=== PATIENT | male | born 1935 | race Caucasian/White ===

== ENCOUNTER → 2019-07-21 15:49 | Outpatient (BNVA) | payer MEDICARE, BC, SELFPAY | PROVIDERS: Visit Provider Nurse Practitioner | DX: Z12.5 Encounter for screening for malignant neoplasm of prostate (principal); I25.10 Atherosclerotic heart disease of native coronary artery without angina pectoris; R41.3 Other amnesia; I10 Essential (primary) hypertension | CPT/HCPCS: 80053; 80061; 81000; 82607; 84443; 85025; G0103 ==

== ENCOUNTER → 2019-11-04 10:36 | Outpatient (BNVA) | payer MEDICARE, BC, SELFPAY | PROVIDERS: Visit Provider Nurse Practitioner | DX: E53.8 Deficiency of other specified B group vitamins (principal); R41.3 Other amnesia | CPT/HCPCS: 82607 ==

== ENCOUNTER 2019-11-16 10:21 | Outpatient (CLI) | payer MEDICARE, BC, SELFPAY ==
[2019-11-16 11:09] LABS: Basophils % 0.8 %; Eosinophils # 0.1 10^3/uL (0.0-0.8); Eosinophils % 2.5 %; Hematocrit 44.1 % (42.0-52.0); Hemoglobin 14.2 g/dL (11.7-16.6); Lymphocytes # 0.7 10^3/uL (0.8-4.8); Mean Corpuscular HGB Conc 32.2 g/dL (30.0-36.0); Mean Corpuscular Hemoglobin 32.1 pg (28.0-34.0); Mean Corpuscular Volume 99.5 fL (80-94); Mean Platelet Volume 10.8 fL (7.4-10.4); Monocytes # 0.3 10^3/uL (0.2-0.9); Monocytes % 6.8 %; Neutrophils # 3.67 10^3/uL (1.8-7.7); Neutrophils % 75.5 %; Nucleated Red Blood Cells % 0 %; Platelet Count 171 10^3/cmm (130-400); Red Blood Count 4.43 10^6/uL (4.1-5.3); Red Cell Distribution Width 11.9 % (12.1-15.1); White Blood Count 4.9 10^3/uL (4.0-10.0)
[2019-11-16 11:22] LABS: Partial Thromboplastin Time 22.9 SECONDS (23.9-36.7)
[2019-11-16 11:28] LABS: Anion Gap 13.8 (5-19); Blood Urea Nitrogen 23 mg/dL (8-23); Calcium 9.6 mg/dL (8.5-10.5); Carbon Dioxide 28 mmol/L (22-29); Chloride 104 mmol/L (98-107); Glucose 111 mg/dL (65-115); Osmolality Calculated 289 mOsm/kg (285-295); Potassium 4.8 mmol/L (3.5-5.1); Sodium 141 mmol/L (136-145)
== END 2019-11-16 10:22 | disposition home or self-care (01) ==
LOC: LAB 10:30
PROVIDERS: Family Provider Internal Medicine Cardiovascular Disease; Visit Provider Internal Medicine Cardiovascular Disease
DX: R07.9 Chest pain, unspecified (principal); R93.1 Abnormal findings on diagnostic imaging of heart and coronary circulation; I10 Essential (primary) hypertension
CPT/HCPCS: 36415; 80048; 85025; 85610; 85730

== ENCOUNTER → 2020-04-24 12:00 | Outpatient (BNVA) | payer MEDICARE, BC, SELFPAY | PROVIDERS: Family Provider Internal Medicine Cardiovascular Disease; Visit Provider Nurse Practitioner Family | DX: R10.9 Unspecified abdominal pain (principal) | CPT/HCPCS: 80053; 82607; 83735; 85025 ==

== ENCOUNTER 2020-04-25 07:40 | Emergency (ER) | payer MEDICARE, BC, SELFPAY ==
[2020-04-25] VITALS (8 sets, daily range): BP systolic 101–128; BP diastolic 74–85; PULSE 50–91; RESP 16–18; TEMP 36.6; O2SAT 95–100; BMI 28.0
--- NOTE | 2020-04-25 07:51 | ECG_ITS ---
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1935 Requested By: Ochoa Milligan Order Number: [id number] Reading MD: KYLE CARDONA Measurements Intervals [place] Rate: 82 P: HI: QRS: -31 QRSD: 95 T: -6 QT: 366 QTc: 429 Interpretive Statements ATRIAL FIBRILLATION INFERIOR MYOCARDIAL INFARCTION , OF INDETERMINATE AGE [40+ ms Q WAVE AND/OR ST/T ABNORMALITY IN II/aVF] MODERATE T-WAVE ABNORMALITY, CONSIDER ANTEROLATERAL ISCHEMIA [-0.1+ mV T WAVE IN V3-V6] No previous ECG available for comparison Electronically Signed On 04-25-2020 18:02:31 PICKLE MAKER by KYLE CARDONA [id number]
--- NOTE | 2020-04-25 08:04 | CT_ITS ---
WS: [id number] CT ABDOMEN AND PELVIS WITH CONTRAST HISTORY: Abdominal pain, periumbilical pain. TECHNIQUE: Imaging performed of the abdomen and pelvis with IV contrast. Single phase imaging of the abdomen. Coronal and sagittal reformats are submitted. All CT scans at [facility] use at least one of these dose optimization techniques: automated exposure control; mA and/or kV adjustment per patient size (includes targeted exams where dose is matched to clinical indication); or iterativ e reconstruction. IV CONTRAST: Omnipaque 300; 95 mL IV. Oral contrast: No DLP: 827.96 mGy.cm COMPARISON: None available. Lower thorax: Dependent changes at the lung bases. The stomach is intrathoracic. There is no ischemic disease. Heart is normal size. Liver/biliary system: Normal size liver with decreased attenuation along the falciform ligament from hepatic steatosis. Gallbladder: Cholelithiasis without evidence for acute cholecystitis. No gallbladder wall thickening or pericholecystic edema. Pancreas: Mild atrophy. Spleen: Normal size spleen with granulomata. Adrenal glands: Normal. Right kidney: Mild cortical atrophy. No mass or obstruction. Left kidney: Exophytic cyst from the upper pole measures 4.3 x 3.6 cm. No obstruction or solid mass. Additional smaller cyst in the lower pole. Aorta: Large infrarenal abdominal aortic aneurysm. Aneurysm extends over a length of 7.6 cm. Maximum transverse diameter is 6.5 cm. There is a large amount of thrombus which is nearly circumferential. T he lumen remains widely patent. The origin of the inferior mesenteric artery demonstrates some mild i ncreased enhancement although there is not a lot of flow within the artery. There is some edema and s urrounding infiltration of the soft tissue at its origin from the aorta. Calcifications are not displ aced within the aneurysm. There is no periaortic hematoma. Celiac axis and SMA are normal. Single bilateral renal arteries are intact. Bilateral common iliac artery aneurysms. RIGHT common iliac artery aneurysm measures 2.6 cm and the L EFT 3.0 cm. 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 Lymphadenopathy: None. Free fluid: None. GI tract: Diffuse constipation. Diverticular disease without acute diverticulitis. The appendix is no t definitely visualized. No ischemic changes or free air. Abdominal wall: Unremarkable abdominal wall. No hernia. Pelvis: No free fluid. Urinary bladder is minimally distended. Prostate gland encroaches into the uri nary bladder. LEFT inguinal canal is patent and contains fat only. Bones: Unremarkable. CT/CT abdomen pelvis w con* [id number] IMPRESSION: 1. Large abdominal aortic aneurysm with a maximum transverse diameter is 6.5 c m. 2. Inflammatory changes and possible acute thrombosis or vasculitis involving the origin of the inferior mesenteric artery. Mild haziness and irregularity wi thin the wall of the adjacent aorta. Impending aortic rupture should be conside red. 3. No ischemic changes within the colon. 4. 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 5. Cholelithiasis without acute cholecystitis. 6. Intrathoracic stomach. Notified Ochoa Harris DO at 04/25/2020 9:44 AM.
--- NOTE | 2020-04-25 08:14 | ED_ITS ---
HPI - Abdominal Pain General: Chief Complaint: Abdominal Pain Stated Complaint: All over Pain/ABD Time Seen by Provider: 04/25/20 07:46 History of Present Illness: HPI narrative: 84-year-old male presents emergency room complaining of lower abdominal pain for the last several days. He was seen yesterday in the clinic that advised him to come to the ER. He is not had any vomiting he has had pain radiating into his back denies dysuria urgency or frequency or hematuria. Denies any diarrhea MD elicited complaint: abdominal pain Onset (ago): day(s) Pain Consistency: intermittent Location: Suprapubic Quality: cramping Radiation: back Exacerbating factors: nothing Relieving factors: nothing Associated Symptoms: Reports anorexia, GI cramping, nausea and poor appetite; Denies belching, bloating, change in bowel habits, change in stool character, chills, coffee ground emesis, constipation, diarrhea, dyspepsia, dysuria, excessive flatus, fever(s), heartburn, hematochezia, hematuria, hematemesis, fecal incontinence, loose stools, melena, syncope and vomiting Review of Systems Const: Denies: fever(s) or chills ENMT: Denies: throat pain, ear or mastoid pain, nasal discharge or nasal congestion Card: Denies: syncope Resp: Denies: dyspnea, productive cough or non-productive cough GI: Reports: nausea and GI cramping; Denies: vomiting, hematemesis, coffee ground emesis, heartburn, diarrhea, constipation, bloating, belching, excessive flatus, fecal incontinence, change in bowel habits, change in stool character, hematochezia or melena : Denies: dysuria or hematuria Skin/Breast: Denies: rash or pruritus PFSH ED PFSH: Medical History Abdominal pain CAD (coronary artery disease) Frequency of micturition History of MN (myocardial infarction) times two Hx of mumps Wears hearing aid in both ears Surgical History History of colonoscopy History of open heart surgery (~2006) Hx of heart artery stent Family History Mother Diabetes Denies family history of Clotting disorder Chronic kidney disease (CKD) Lung disease Cancer Hypertension Stroke Social History Smoking and tobacco status: former smoker Quit status (tobacco): has quit using tobacco Second hand smoke exposure: No Smoking risk assessment/counseling performed?: No Alcohol intake: never Desire information about alcohol rehabilitation?: No Counseling given: No Desire information about substance/drug rehabilitation?: No Counseling given: No Adopted: No Caregiver/support person: No Lives independently: Yes Household members: none Housing: Manufactured/Mobile home Marital status: Number of children: 3 Number of grandchildren: 7 Highest education level completed: High School Graduate service: No Current occupational status: retired Pets and animals: No History of recent travel: No Current gender identity: Male Physical Exam Const: COMMON NORMALS: no acute distress GENERAL APPEARANCE: cooperative and comfortable ORIENTATION/CONSCIOUSNESS: Yes awake, Yes oriented to person, Yes oriented to place and Yes oriented to time HENMT: COMMON NORMALS: normocephalic, atraumatic and hearing grossly normal bilaterally HEAD & SCALP: normocephalic and atraumatic Neck/C-Spine: COMMON NORMALS: no JVD Resp: COMMON NORMALS: normal respiratory effort, No retractions, No use of accessory muscles and clear to auscultation bilaterally AUSCULTATION: clear to auscultation bilaterally Cardio: COMMON NORMALS: no JVD, regular rate, regular rhythm and No murmurs present (Cardio) RATE: regular rate RHYTHM: regular rhythm GI: COMMON NORMALS: Soft to palpation and No hepatosplenomegaly present AUSCULTATION: Yes normoactive bowel sounds PALPATION: Yes Soft to palpation, No Tenderness to palpation present (GI), No Guarding due to palpation present (GI) and Yes No hepatosplenomegaly present Extremity: COMMON NORMALS: normal to inspection, capillary refill normal, no clubbing, cyanosis or edema, no calf tenderness and no pedal edema Neuro: SENSORIUM/ORIENTATION: Yes oriented to person, Yes oriented to place and Yes oriented to time Skin: COMMON NORMALS: no rashes or lesions noted GENERAL SKIN EXAM: no rashes or lesions noted Course Vital Signs: Vital signs: Vital Signs Temperature 97.9 F 04/25/20 07:43 Pulse Rate 87 04/25/20 11:40 Respiratory Rate 16 04/25/20 11:40 Blood Pressure 119/76 04/25/20 11:40 Pulse Oximetry 96 04/25/20 11:40 MDM - Abdominal Pain MDM Narrative: Medical decision making narrative: Abdominal aortic aneurysm with questionable thrombosis versus early vasculitis at the origin of the inferior mesenteric artery. Discussed with Dr. Green in [place] he will accept the patient on transfer. Lab Data: Labs: Lab Results 04/25/20 04/25/20 04/25/20 Range/Units 07:57 07:57 08:14 WBC 8.7 (4.0-10.0) 10^3/ uL RBC 4.78 (4.1-5.3) 10^6/u L Hgb 15.1 (11.7-16.6) g/dL Hct 44.8 (42.0-52.0) % MCV 93.7 (80-94) fL MCH 31.6 (28.0-34.0) pg MCHC 33.7 (30.0-36.0) g/dL RDW 11.1 L (12.1-15.1) % Plt Count 235 (130-400) 10^3/c mm MPV 10.3 (7.4-10.4) fL Neut % (Auto) 83.7 % Lymph % (Auto) 6.6 % Hawkins % (Auto) 9.1 % Eos % (Auto) 0.0 % Baso % (Auto) 0.3 % Neut # (Auto) 7.23 (1.8-7.7) 10^3/u L Lymph # (Auto) 0.6 L (0.8-4.8) 10^3/u L Hawkins # (Auto) 0.8 (0.2-0.9) 10^3/u L Eos # (Auto) 0.0 (0.0-0.8) 10^3/u L Baso # (Auto) 0.0 (0.0-0.1) 10^3/u L Nucleated RBC % (a uto) 0 % Nucleated RBCs # 0.0 /100WBC Sodium 135 L (136-145) mmol/L Potassium 4.0 (3.5-5.1) mmol/L Chloride 100 (98-107) mmol/L Carbon Dioxide 24 (22-29) mmol/L Anion Gap 15.0 (5-19) BUN 28 H (8-23) mg/dL Creatinine 1.0 (0.7-1.2) mg/dL GFR Calculation Not Reportable Glucose 122 H (65-115) mg/dL Calculated Osmolal ity 287 (285-295) mOsm/k g Calcium 9.3 (8.5-10.5) mg/dL Magnesium 2.2 (1.7-2.3) mg/dL Total Bilirubin 1.0 (0.15-1.2) mg/dL AST 13 (0-40) U/L ALT 11 (0-41) U/L Alkaline Phosphata se 119 (40-130) IU/L Creatine Kinase 35 L (39-308) U/L Total Protein 6.8 (6.6-8.7) g/dL Albumin 3.5 (3.5-5.2) g/dL Globulin 3.3 (1.3-4.6) g/dL Urine Color Yellow (Yellow) Urine Appearance Clear (CLEAR) Urine pH 5 (5-7) Ur Specific Gravit y 1.025 (1.005-1.030) Urine Protein Trace (Negative) Urine Glucose (UA) Norm (Normal) Urine Ketones 1+ H (Negative) Urine Blood 2+ H (Negative) Urine Nitrate Negative (Negative) Urine Bilirubin 1+ H (Negative) Urine Urobilinogen 4 H (Negative) mg/dL Ur Leukocyte Siobhan ase Negative (Negative) Urine RBC 0-4 H (0-2) /hpf Urine WBC 0-4 H (0-5) /hpf Ur Squamous Epith Cells 0-4 H (0-5) /hpf Amorphous Sediment Not Reportable Urine Bacteria Trace (NONE) /hpf Urine Mucus 1+ /hpf Discharge Plan Discharge Patient Disposition: Transfer to ED Clinical Impression: Abdominal aortic aneurysm, Mesenteric artery thrombosis Condition: Stable Prescriptions: No Action amlodipine 5 mg tablet 5 mg PO QAM RF: 0 metoprolol succinate 25 mg tablet extended release 24 hr 12.5 mg PO QAM RF: 0 rosuvastatin 20 mg tablet 20 mg PO QPM RF: 0 Coding Level of Care Code 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
[2020-04-25 08:18] LABS: Basophils % 0.3 %; Hematocrit 44.8 % (42.0-52.0); Hemoglobin 15.1 g/dL (11.7-16.6); Lymphocytes # 0.6 10^3/uL (0.8-4.8); Lymphocytes % 6.6 %; Mean Corpuscular HGB Conc 33.7 g/dL (30.0-36.0); Mean Corpuscular Hemoglobin 31.6 pg (28.0-34.0); Mean Corpuscular Volume 93.7 fL (80-94); Mean Platelet Volume 10.3 fL (7.4-10.4); Monocytes # 0.8 10^3/uL (0.2-0.9); Monocytes % 9.1 %; Neutrophils # 7.23 10^3/uL (1.8-7.7); Neutrophils % 83.7 %; Nucleated Red Blood Cells % 0 %; Platelet Count 235 10^3/cmm (130-400); Red Blood Count 4.78 10^6/uL (4.1-5.3); Red Cell Distribution Width 11.1 % (12.1-15.1); White Blood Count 8.7 10^3/uL (4.0-10.0)
[2020-04-25 08:23] LABS: Add Urine Microscopic? YES; Bilirubin Urine 1+ (Negative); Blood Urine 2+ (Negative); Glucose Urine UA Norm (Normal); Ketones Urine 1+ (Negative); Leukocyte Esterase Urine Negative (Negative); Nitrate Urine Negative (Negative); Protein Urine Trace (Negative); Specific Gravity, Urine 1.025 (1.005-1.030); Urine Appearance Clear (CLEAR); Urine Color Yellow (Yellow); Urobilinogen Urine 4 mg/dL (Negative); pH Urine 5 (5-7)
[2020-04-25 08:28] LABS: Alanine Aminotransferase 11 U/L (0-41); Albumin Level 3.5 g/dL (3.5-5.2); Alkaline Phosphatase 119 IU/L (40-130); Aspartate Amino Transferase 13 U/L (0-40); Blood Urea Nitrogen 28 mg/dL (8-23); Calcium 9.3 mg/dL (8.5-10.5); Carbon Dioxide 24 mmol/L (22-29); Chloride 100 mmol/L (98-107); Creatine Phosphokinase 35 U/L (39-308); Globulin 3.3 g/dL (1.3-4.6); Glucose 122 mg/dL (65-115); Magnesium 2.2 mg/dL (1.7-2.3); Osmolality Calculated 287 mOsm/kg (285-295); Sodium 135 mmol/L (136-145); Total Protein 6.8 g/dL (6.6-8.7)
[2020-04-25 08:42] LABS: Add Urine Culture? No; Bacteria Urine TRACE /hpf; Mucus Urine 1+ /hpf; RBC Urine 0-4 /hpf (0-2); Squamous Epithelial Cell Urine 0-4 /hpf (0-5); WBC Urine 0-4 /hpf (0-5)
[2020-04-25] MEDS: iohexol 300 mg/mL 100 mL Btl IV (09:15)
--- NOTE | 2020-04-25 09:39 | PC.PHAR ---
pt states he takes care of his own medications-pt states he is only taking 2 bp meds and one cholesterol medication-
== END 2020-04-25 12:16 ==
PROVIDERS: Emergency Provider Family Medicine
DX: I71.4 Abdominal aortic aneurysm, without rupture (principal); K55.069 Acute infarction of intestine, part and extent unspecified; I25.10 Atherosclerotic heart disease of native coronary artery without angina pectoris; I25.2 Old myocardial infarction; Z87.891 Personal history of nicotine dependence
CPT/HCPCS: 12345; 74177; 80053; 81001; 82550; 83735; 85025; 93005; 96374; 99283; Q9967

== ENCOUNTER 2020-06-17 07:30 | Inpatient (IN) | payer MEDICARE, SELFPAY ==
[2020-06-17] VITALS (10 sets, daily range): BP systolic 109–152; BP diastolic 64–129; PULSE 58–90; RESP 12–22; TEMP 36.3–36.8; O2SAT 91–98; BMI 28.1
--- NOTE | 2020-06-17 07:54 | ECG_ITS ---
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 Measurements Intervals [place] Rate: 70 P: [place]: QRS: 11 QRSD: 99 T: 14 QT: 415 QTc: 451 Interpretive Statements ATRIAL FIBRILLATION WITH ABERRANT CONDUCTION OR VENTRICULAR PREMATURE COMPLEXES MINIMAL ST DEPRESSION [0.025+ mV ST DEPRESSION] Compared to ECG 04/25/2020 08:05:35 Ventricular premature complex(es) now present Aberrant conduction of supraventricular beat(s) now present ST (T wave) deviation now present Myocardial infarct finding no longer present T-wave abnormality no longer present Possible ischemia no longer present Electronically Signed On 06-17-2020 13:13:29 CDT by Jamal Pulido M.D. [id number]
--- NOTE | 2020-06-17 07:54 | XRR_ITS ---
PROCEDURE INFORMATION: Exam: XR Chest Exam date and time: 06/17/2020 8:15 AM Age: 84 years old Clinical indication: Cough and dyspnea; Additional info: Dyspnea/cough TECHNIQUE: Imaging protocol: XR of the chest Views: 1 view. COMPARISON: No relevant prior studies available. FINDINGS: Lungs: The medial left base is opacified due to a large hiatal hernia. The lungs are otherwise clear. Pleural spaces: Unremarkable. No pleural effusion. No pneumothorax. Heart/Mediastinum: The patient has undergone coronary bypass surgery. The heart is not enlarged. Bones/joints: Unremarkable. XR/XR chest 1V portable [id number] IMPRESSION: Large hiatal hernia. No acute abnormality.
--- NOTE | 2020-06-17 07:55 | ED_ITS ---
HPI - Extremity Problem General: Chief complaint: Extremity Problem,Nontraumatic Stated complaint: feet swelling Time Seen by Provider: 06/17/20 07:45 History of Present Illness: HPI Narrative: 84-year-old male presents emergency room with complaint of swelling to his lower legs for the last week. He denies any orthopnea no PND he denies any chest pain. Patient has a sternotomy scar that appears several years old he cannot recall exactly when he had it he was new unsure what surgery was done. He lives at home alone he has family in neighboring [place]. MD Complaint: extremity swelling Onset (ago): week(s) (2) Relieving factors: nothing Exacerbating factors: nothing Associated symptoms: Deny arthralgias, chest pain, fever(s), myalgias, rash or short of breath Review of Systems Const: Denies: fever(s) ENMT: Denies: throat pain, ear or mastoid pain, nasal discharge or nasal congestion Card: Denies: chest pain Resp: Denies: dyspnea, productive cough or non-productive cough GI: Denies: abdominal pain, nausea, vomiting, hematemesis, coffee ground emesis, diarrhea, constipation, bloating, hematochezia or melena : Denies: flank pain, dysuria, urinary frequency or urinary urgency Skin/Breast: Denies: rash PFSH ED PFSH: Medical History Abdominal pain CAD (coronary artery disease) Frequency of micturition History of CT (myocardial infarction) times two Hx of mumps Wears hearing aid in both ears Surgical History History of colonoscopy History of open heart surgery (~2006) Hx of heart artery stent Family History Mother Diabetes Denies family history of Clotting disorder Chronic kidney disease (CKD) Lung disease Cancer Hypertension Stroke Social History Smoking and tobacco status: former smoker Quit status (tobacco): has quit using tobacco Second hand smoke exposure: No Smoking risk assessment/counseling performed?: No Alcohol intake: never Desire information about alcohol rehabilitation?: No Counseling given: No Desire information about substance/drug rehabilitation?: No Counseling given: No Adopted: No Caregiver/support person: No Lives independently: Yes Household members: none Housing: Manufactured/Mobile home Marital status: Number of children: 3 Number of grandchildren: 7 Highest education level completed: High School Graduate service: No Current occupational status: retired Pets and animals: No History of recent travel: No Current gender identity: Male Physical Exam Const: COMMON NORMALS: no acute distress GENERAL APPEARANCE: cooperative and comfortable ORIENTATION/CONSCIOUSNESS: Yes awake, Yes oriented to person, Yes oriented to place and Yes oriented to time HENMT: COMMON NORMALS: normocephalic, atraumatic and hearing grossly normal bilaterally HEAD & SCALP: normocephalic and atraumatic Neck/C-Spine: COMMON NORMALS: no JVD Resp: COMMON NORMALS: normal respiratory effort, No retractions, No use of accessory muscles and clear to auscultation bilaterally AUSCULTATION: clear to auscultation bilaterally Cardio: COMMON NORMALS: no JVD and No murmurs present (Cardio) RATE: tachycardic RHYTHM: abnormal rhythm irregularly irregular GI: COMMON NORMALS: Soft to palpation and No hepatosplenomegaly present AUSCULTATION: Yes normoactive bowel sounds PALPATION: Yes Soft to palpation, No Tenderness to palpation present (GI), No Guarding due to palpation present (GI) and Yes No hepatosplenomegaly present Extremity: COMMON NORMALS: normal to inspection, capillary refill normal and no calf tenderness GENERAL: Yes edema Neuro: SENSORIUM/ORIENTATION: Yes oriented to person, Yes oriented to place and Yes oriented to time Skin: COMMON NORMALS: no rashes or lesions noted GENERAL SKIN EXAM: no rashes or lesions noted Course Vital Signs: Vital signs: Vital Signs Temperature 98.2 F 06/17/20 07:35 Pulse Rate 73 06/17/20 10:44 Respiratory Rate 20 H 06/17/20 10:44 Blood Pressure 151/110 06/17/20 10:44 Pulse Oximetry 97 06/17/20 10:44 MDM - Extremity (Nontraumatic) MDM Narrative: Medical decision making narrative: Patient appears to have new onset A. fib on EKG the rhythm strip endorses. He also has significant swelling in his legs question of a little bit of congestive failure on his chest x-ray working to go ahead and admit him for new onset A. fib mild failure. He also needs adjustment of his other medications currently he is not even on aspirin. Discussed with hospitalist will admit. Lab Data: Labs: Lab Results 06/17/20 06/17/20 06/17/20 Range/Units 08:02 08:02 08:28 WBC 4.1 (4.0-10.0) 10^3/ uL RBC 4.04 L (4.1-5.3) 10^6/u L Hgb 13.0 (11.7-16.6) g/dL Hct 39.9 L (42.0-52.0) % MCV 98.8 H (80-94) fL MCH 32.2 (28.0-34.0) pg MCHC 32.6 (30.0-36.0) g/dL RDW 13.1 (12.1-15.1) % Plt Count 175 (130-400) 10^3/c mm MPV 10.1 (7.4-10.4) fL Neut % (Auto) 72.7 % Lymph % (Auto) 12.8 % Fannin % (Auto) 10.4 % Eos % (Auto) 2.9 % Baso % (Auto) 0.7 % Neut # (Auto) 3.00 (1.8-7.7) 10^3/u L Lymph # (Auto) 0.5 L (0.8-4.8) 10^3/u L Fannin # (Auto) 0.4 (0.2-0.9) 10^3/u L Eos # (Auto) 0.1 (0.0-0.8) 10^3/u L Baso # (Auto) 0.0 (0.0-0.1) 10^3/u L Nucleated RBC % (a uto) 0 % Nucleated RBCs # 0.0 /100WBC Sodium 141 (136-145) mmol/L Potassium 3.9 (3.5-5.1) mmol/L Chloride 104 (98-107) mmol/L Carbon Dioxide 28 (22-29) mmol/L Anion Gap 12.9 (5-19) BUN 15 (8-23) mg/dL Creatinine 0.8 (0.7-1.2) mg/dL GFR Calculation Not Reportable Glucose 114 (65-115) mg/dL Calculated Osmolal ity 294 (285-295) mOsm/k g Calcium 8.7 (8.5-10.5) mg/dL Magnesium 2.2 (1.7-2.3) mg/dL Total Bilirubin 0.7 (0.15-1.2) mg/dL AST 21 (0-40) U/L ALT 17 (0-41) U/L Alkaline Phosphata se 68 (40-130) IU/L Creatine Kinase 69 (39-308) U/L NT-Pro-B Natriuret Pep 583 H (0-450) pg/mL Total Protein 6.4 L (6.6-8.7) g/dL Albumin 3.8 (3.5-5.2) g/dL Globulin 2.6 (1.3-4.6) g/dL Urine Color Yellow (Yellow) Urine Appearance Clear (CLEAR) Urine pH 6 (5-7) Ur Specific Gravit y 1.015 (1.005-1.030) Urine Protein Neg (Negative) Urine Glucose (UA) Norm (Normal) Urine Ketones Negative (Negative) Urine Blood Neg (Negative) Urine Nitrate Negative (Negative) Urine Bilirubin Neg (Negative) Urine Urobilinogen Norm (Negative) mg/dL Ur Leukocyte Siobhan ase Negative (Negative) Discharge Plan Discharge Patient Disposition: Home Clinical Impression: Atrial fibrillation, new onset, CAD (coronary artery disease), Prostate cancer screening, Congestive heart failure Condition: Stable Coding Level of Care Code 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
--- NOTE | 2020-06-17 07:58 | USR_ITS ---
PROCEDURE INFORMATION: Exam: US Duplex Lower Extremity Veins, Bilateral Exam date and time: 06/17/2020 8:04 AM Age: 84 years old Clinical indication: Swelling (edema) of limb; Lower extremity, bilateral TECHNIQUE: Imaging protocol: Real-time duplex ultrasound of the extremities with 2-D garcia scale, color Doppler flow and spectral waveform analysis with image documentation. Complete exam focused on the bilateral lower extremity veins. COMPARISON: No relevant prior studies available. FINDINGS: Right deep veins: Unremarkable. The common femoral, femoral, proximal profunda femoral and popliteal veins are patent without thrombus. Normal Doppler waveforms. Normal compressibility and/or augmentation response. Right superficial veins: Saphenofemoral junction is patent without thrombus. Left deep veins: Unremarkable. The common femoral, femoral, proximal profunda femoral and popliteal veins are patent without thrombus. Normal Doppler waveforms. Normal compressibility and/or augmentation response. Left superficial veins: Saphenofemoral junction is patent without thrombus. Soft tissues: There is bilateral lower leg subcutaneous edema. US/CV venous duplex [facility] [id number] IMPRESSION: No evidence of deep vein thrombosis.
[2020-06-17] MEDS: FUROsemide 10 mg/mL SDV 4mL 40 MG IVP ×2 (08:11→12:27)
[2020-06-17 08:27] LABS: Basophils % 0.7 %; Eosinophils # 0.1 10^3/uL (0.0-0.8); Eosinophils % 2.9 %; Hematocrit 39.9 % (42.0-52.0); Lymphocytes # 0.5 10^3/uL (0.8-4.8); Lymphocytes % 12.8 %; Mean Corpuscular HGB Conc 32.6 g/dL (30.0-36.0); Mean Corpuscular Hemoglobin 32.2 pg (28.0-34.0); Mean Corpuscular Volume 98.8 fL (80-94); Mean Platelet Volume 10.1 fL (7.4-10.4); Monocytes # 0.4 10^3/uL (0.2-0.9); Monocytes % 10.4 %; Neutrophils % 72.7 %; Nucleated Red Blood Cells % 0 %; Platelet Count 175 10^3/cmm (130-400); Red Blood Count 4.04 10^6/uL (4.1-5.3); Red Cell Distribution Width 13.1 % (12.1-15.1); White Blood Count 4.1 10^3/uL (4.0-10.0)
[2020-06-17 08:32] LABS: Add Urine Microscopic? NO
[2020-06-17 08:39] LABS: Bilirubin Urine Neg (Negative); Blood Urine Neg (Negative); Glucose Urine UA Norm (Normal); Ketones Urine Negative (Negative); Leukocyte Esterase Urine Negative (Negative); Nitrate Urine Negative (Negative); Protein Urine Neg (Negative); Specific Gravity, Urine 1.015 (1.005-1.030); Urine Appearance Clear (CLEAR); Urine Color Yellow (Yellow); Urobilinogen Urine Norm (Negative); pH Urine 6 (5-7)
[2020-06-17 09:01] LABS: Alanine Aminotransferase 17 U/L (0-41); Albumin Level 3.8 g/dL (3.5-5.2); Alkaline Phosphatase 68 IU/L (40-130); Anion Gap 12.9 (5-19); Aspartate Amino Transferase 21 U/L (0-40); Blood Urea Nitrogen 15 mg/dL (8-23); Calcium 8.7 mg/dL (8.5-10.5); Carbon Dioxide 28 mmol/L (22-29); Chloride 104 mmol/L (98-107); Creatine Phosphokinase 69 U/L (39-308); Globulin 2.6 g/dL (1.3-4.6); Glucose 114 mg/dL (65-115); Magnesium 2.2 mg/dL (1.7-2.3); NT Pro B Type Natriuretic Pept 583 pg/mL (0-450); Osmolality Calculated 294 mOsm/kg (285-295); Potassium 3.9 mmol/L (3.5-5.1); Sodium 141 mmol/L (136-145); Total Bilirubin 0.7 mg/dL (0.15-1.2); Total Protein 6.4 g/dL (6.6-8.7)
--- NOTE | 2020-06-17 09:46 | PC.PHAR ---
Addendum entered by Eva Barba 06/17/20 10:36: called [facility] that ext med history shows medications were filled at-[facility] is in [place] ar [phone] [facility] picks [facility] the pts medications but cant pull the name of who signs for them-[facility] states they have rxs on hold for rosuvastatin and amlodipine form 05/23/20-[facility] states the rxs were sent in from a dr karthik geller from [place]-call pts contact gordon cortes she states she is his exwife but they are still friends but is unsure what medications he takes Original Note: PT STATES HE TAKES CARE OF HIS OWN MEDICATIONS-PT BROUGHT IN A LIST OF MEDS HE TAKES BUT HAD NO MG OR HOW HE TAKES THEM-VERIFIED WITH PT MG AND HOW HE TAKES THEM-MATCHES WITH WHAT EXT MED HISTORY SHOWS
--- NOTE | 2020-06-17 11:03 | USCV_ITS ---
Yuniel Oshea Age: 84 Gender: M : 1935 Exam Date: 06/17/2020 15:37 Ordering Phys: Leonel Cobb MD Technologist: Sandra Jimenez Exam Location: [facility] [place] Indication: ? CHF, AFIB BP: 151 / 110 HR: 73 Rhythm: Sinus Technical Quality: Suboptimal MEASUREMENTS (Male / Female) Normal Values 2D ECHO LV Diastolic Diameter PLAX 4.7 cm 4.2 - 5.9 / 3.9 - 5.3 cm LV Systolic Diameter PLAX 3.4 cm LV Chamber Size 4.2 cm IVS Diastolic Thickness 1.5 cm 0.6 - 1.0 / 0.6 - 0.9 cm IVS Systolic Thickness 1.8 cm LVPW Diastolic Thickness 0.9 cm 0.6 - 1.0 / 0.6 - 0.9 cm LVPW Systolic Thickness 1.3 cm RV Chamber Size 3.9 cm LVOT Diameter 1.9 cm LV Ejection Fraction 2D Teich 51.9 % LV Ejection Fraction MOD 2C 53.7 % LV Ejection Fraction 2C AL 55.1 % LA Diameter 2.5 cm LA Width 2.6 cm LA Height 7.0 cm RA Width 3.6 cm RA Height 5.5 cm Aorta at Sinotubular Diameter 3.0 cm M-MODE LV Diastolic Diameter MM 5.7 cm 4.2 - 5.9 / 3.9 - 5.3 cm LV Systolic Diameter MM 4.0 cm LV Ejection Fraction MM Teich 56.0 % IVS Diastolic Thickness MM 1.2 cm 0.6 - 1.0 / 0.6 - 0.9 cm IVS Systolic Thickness MM 1.6 cm LVPW Diastolic Thickness MM 1.1 cm 0.6 - 1.0 / 0.6 - 0.9 cm LVPW Systolic Thickness MM 1.4 cm RV Diastolic Diameter MM 0.9 cm Aortic Annulus Diameter 3.6 cm LA Ao Ratio MM 1.0 MV E Point Septal Separation 0.6 cm DOPPLER AV Peak Velocity 124.0 cm/s LVOT Peak Velocity 87.0 cm/s AV Area Cont Eq vti 2.2 cm squared AV Area Cont Eq pk 2.0 cm squared MV Area PHT 3.7 cm squared Mitral E to A Ratio 0.6 MV E' Velocity 33.5 cm/s Mitral E to MV E' Ratio 6.6 Mitral E to LV E' Lateral Ratio 5.1 Mitral E to LV E' Septal Ratio 9.3 TR Peak Velocity 203.3 cm/s TR Peak Gradient 16.5 mmHg TR Mean Velocity 169.1 cm/s TR Mean Gradient 12.4 mmHg TR Velocity Time Integral 61.3 cm Right Atrial Pressure 3.0 mmHg Pulmonary Artery Systolic Pressu 19.5 mmHg FINDINGS Left Ventricle Normal left ventricular size. LV systolic function is normal. LV EF is 50-55%. No regional wall motion abnormalities. Grade 1 diastolic dysfunction Right Ventricle The right ventricle is normal in size and function. Right Atrium The right atrium is normal in size. Left Atrium Grossly left atrium is enlarged Mitral Valve Structurally normal mitral valve without significant stenosis or prolapse. There is mild mitral regurgitation. Aortic Valve Structurally normal aortic valve without significant sclerosis or stenosis. There is mild aortic regurgitation. Tricuspid Valve Structurally normal tricuspid valve without significant stenosis. Trace tricuspid regurgitation. RVSP is 20-25mmHg. Pulmonic Valve Structurally normal pulmonic valve without significant stenosis. There is no pulmonic regurgitation. Pericardium Normal pericardium without effusion. Aorta Normal ascending aorta dimension. CONCLUSIONS LV systolic function is normal with EF of 50-55% Grade 1 diastolic dysfunction Mild aortic regurgitation. Mild mitral regurgitation Trace tricuspid regurgitation No comparison studies are available Jamal Pulido MD (Electronically Signed) Final Date: 17 June 2020 18:39 S
--- NOTE | 2020-06-17 11:04 | PM.HP ---
Providers/Chief Complaint Admitting Physician: Leonel Cobb Chief Complaint: feet swelling History of Present Illness Yuniel Oshea is a 84 year old male with probable coronary artery disease, hypertension, dyslipidemia, BPH, and probably dementia who is presenting with complaints of peripheral swelling in the legs bilaterally. He noticed this couple of weeks ago. No significant worsening since then. He denies any redness, tenderness or discoloration. He denies chest pain, shortness of breath, cough, palpitations. He denies dizziness or lightheadedness. He sleeps well. Does not use extra pillows. Denies dysuria. Denies fever or chills. He reports short-term memory loss. He lives alone. Denies any confusion or headache. No focal muscle weakness or sensory loss. Denies falls. Review of Systems General: Reports: 10 or more systems reviewed and unremarkable except in HPI and below Medications/Allergies Home Medications Medication Instructions Recorded Confirmed Last Taken Type amlodipine 5 mg tablet 5 mg PO QAM 07/21/19 06/17/20 06/17/20 02:00 History metoprolol succinate 25 mg 12.5 mg PO QAM 07/21/19 06/17/20 06/17/20 02:00 History tablet,extended release 24 hr rosuvastatin 20 mg tablet 20 mg PO QPM 07/21/19 06/17/20 06/16/20 History tamsulosin 0.4 mg PO QAM 06/17/20 06/17/20 06/17/20 04:00 History Allergies Allergy/AdvReac Type Severity Reaction Status Date / Time No Known Allergies Allergy Verified 06/17/20 09:46 PFSH Acute PFSH: Medical History Abdominal pain CAD (coronary artery disease) Frequency of micturition History of DC (myocardial infarction) times two Hx of mumps Wears hearing aid in both ears Surgical History History of colonoscopy History of open heart surgery (~2006) Hx of heart artery stent Family History Mother Diabetes Denies family history of Clotting disorder Chronic kidney disease (CKD) Lung disease Cancer Hypertension Stroke Social History Smoking and tobacco status: former smoker Quit status (tobacco): has quit using tobacco Second hand smoke exposure: No Smoking risk assessment/counseling performed?: No Alcohol intake: never Desire information about alcohol rehabilitation?: No Counseling given: No Desire information about substance/drug rehabilitation?: No Counseling given: No Adopted: No Caregiver/support person: No Lives independently: Yes Household members: none Housing: Manufactured/Mobile home Marital status: Number of children: 3 Number of grandchildren: 7 Highest education level completed: High School Graduate service: No Current occupational status: retired Pets and animals: No History of recent travel: No Current gender identity: Male Vitals/I&O/Wt Last Vital Signs Temp 98.2 F 06/17/20 07:35 Pulse 73 06/17/20 10:44 Resp 20 H 06/17/20 10:44 BP 151/110 06/17/20 10:44 Pulse Ox 97 06/17/20 10:44 Weight last 48 hrs Weight 83.915 kg Physical Exam Narrative: EXAM NARRATIVE: Awake alert oriented. No acute distress. Mood and affect are appropriate. Responses are adequate. Skin is warm and dry. Moist mucous memories. Neck supple. No JVD Lungs are clear to auscultation bilaterally. No respiratory distress. Heart S1, S2, irregular Abdomen is soft, nontender, bowel sounds are present Extremities 2-3+ bilateral symmetric pedal edema. No cyanosis or calf tenderness bilaterally Normal speech Eyes PERRL, extraocular muscles are intact No facial asymmetry. No focal muscle weakness or sensory loss. Data : 06/17/20 08:02 06/17/20 08:02 A&P Additional A&P Information 83-year-old male with above listed past medical history who is presenting with complaints of peripheral swelling. There is no evidence of infection. Doppler was negative for DVT. Chest x-ray is negative for CHF. BNP is elevated. EKG shows atrial fibrillation, no acute ischemic changes. Rate controlled. Peripheral swelling. Will review his home medications and do necessary adjustments. Starting Lasix. Will order echo to evaluate his heart. He has significant cardiac history but were not sure about details. Will consider cardiac consultation inpatient or outpatient referral after discharge. We will add aspirin. Will check fasting lipids in the morning. Atrial fibrillation. Rate controlled. We will continue home beta-carol. No anticoagulation due to advanced age and risk of falls and bleeding complications. Hypertension. Well-controlled. Will replace amlodipine with lisinopril. We will continue monitoring and adjusting medications. History of BPH. We will continue home Flomax. Microcytosis. Will check B12 and folic acid level. No significant anemia. Memory loss. Probably chronic. Most likely related to dementia. We will check his B12 level and TSH level. Rest of the work-up can be done in outpatient settings. Acute OT eval. Case management involved. Might need placement. DVT prophylaxis. Lovenox. Teds and SCDs. CODE STATUS. The patient wants to be full code. The plan of care was discussed with the patient. He verbalized understanding and agreement. Attestations Medical Necessity Statement*: I expect that the patient will spend more than 2 midnights in the hospital to complete the work-up and solve the problems with his discharge needs. Coding Level of Care Code Acute Teacher Of The Hearing Impaired for Melania Beth
--- NOTE | 2020-06-17 11:05 | ECG_ITS ---
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 Measurements Intervals [place] Rate: 70 P: 192 [place]: 216 QRS: -21 QRSD: 98 T: 2 QT: 434 QTc: 471 Interpretive Statements Atrial fibrillation INFERIOR MYOCARDIAL INFARCTION , PROBABLY OLD [40+ ms Q WAVE AND/OR ST/T ABNORMALITY IN II/aVF] Compared to ECG 06/17/2020 08:47:42 First degree AV block now present Myocardial infarct finding now present Ventricular premature complex(es) no longer present Aberrant conduction of supraventricular beat(s) no longer present ST (T wave) deviation no longer present Electronically Signed On 06-17-2020 13:11:56 CDT by Jamal Pulido M.D. [id number]
--- NOTE | 2020-06-17 11:15 | PC.NURSE ---
700 mls also prodiced
[2020-06-17 11:44] LABS: Vitamin B12 396 pg/mL (232-1245)
[2020-06-17 11:45] LABS: Folate Level 12.6 ng/mL (4.5-32.2)
[2020-06-17] MEDS: enoxaparin 40 mg/0.4 mL Syringe SUBCUT (12:28)
[2020-06-17] MEDS: atorvastatin 40 mg Tablet 80 MG PO (18:29)
--- NOTE | 2020-06-17 18:54 | PC.NURSE ---
Call placed to Dr. Cobb regarding 2300 dose of IV furosemide. Reported 2890 in urine output. Requested to change time of next dose of furosemide to 0600. Order received to give at 06/18.
[2020-06-18] VITALS: BP 97/56; PULSE 73; RESP 13
[2020-06-18 03:07] VITALS: BP 119/60; PULSE 69; RESP 16; TEMP 36.6; O2SAT 92
[2020-06-18] MEDS: tamsulosin 0.4 mg Capsule PO (05:07)
[2020-06-18] MEDS: metoprolol succinate ER (24 HR) 25 mg Tablet 12.5 MG PO (05:07)
[2020-06-18] MEDS: FUROsemide 10 mg/mL SDV 4mL 40 MG IVP (05:09)
[2020-06-18 05:21] LABS: Basophils % 0.9 %; Eosinophils # 0.1 10^3/uL (0.0-0.8); Eosinophils % 3.3 %; Hematocrit 38.2 % (42.0-52.0); Hemoglobin 12.5 g/dL (11.7-16.6); Lymphocytes # 0.7 10^3/uL (0.8-4.8); Lymphocytes % 15.9 %; Mean Corpuscular HGB Conc 32.7 g/dL (30.0-36.0); Mean Corpuscular Hemoglobin 32.7 pg (28.0-34.0); Monocytes # 0.5 10^3/uL (0.2-0.9); Monocytes % 12.8 %; Neutrophils # 2.81 10^3/uL (1.8-7.7); Neutrophils % 66.6 %; Nucleated Red Blood Cells % 0 %; Platelet Count 176 10^3/cmm (130-400); Red Blood Count 3.82 10^6/uL (4.1-5.3); Red Cell Distribution Width 13.2 % (12.1-15.1); White Blood Count 4.2 10^3/uL (4.0-10.0)
[2020-06-18 06:00] LABS: Anion Gap 12.6 (5-19); Blood Urea Nitrogen 18 mg/dL (8-23); Calcium 8.6 mg/dL (8.5-10.5); Carbon Dioxide 29 mmol/L (22-29); Chloride 105 mmol/L (98-107); Chol HDL Ratio 3.15 mg/dL (1.0-5.00); Cholesterol 126 mg/dL (0-200); Glucose 86 mg/dL (65-115); HDL Cholesterol 40 mg/dL (60-100); LDL Cholesterol Calculated 69 mg/dL (50-129); LDL HDL Ratio 1.73 RATIO (0.00-3.22); Magnesium 2.2 mg/dL (1.7-2.3); NT Pro B Type Natriuretic Pept 520 pg/mL (0-450); Osmolality Calculated 297 mOsm/kg (285-295); Potassium 3.6 mmol/L (3.5-5.1); Sodium 143 mmol/L (136-145); Thyroid Stimulating Hormone 2.75 uIU/mL (0.27-4.20); Triglycerides 87 mg/dL (0-150)
[2020-06-18 06:31] VITALS: PULSE 66
[2020-06-18 07:14] VITALS: BP 118/73; PULSE 73; RESP 16; TEMP 36.3; O2SAT 93
[2020-06-18] MEDS: lisinopril 5 mg Tablet PO (08:52)
[2020-06-18] MEDS: aspirin 81 mg EC Tablet PO (08:52)
--- NOTE | 2020-06-18 09:52 | PM.DCS ---
Discharge Providers Date of Admission: 06/17/20 09:30 Date of Discharge: June 18, 2020 Attending Provider at Admission: Leonel Cobb Attending Provider at Discharge: Leonel Cobb Reason for Visit Reason for Visit: feet swelling Hospital Course Hospital Course 83-year-old male with above listed past medical history presented with complaints of peripheral swelling. There is no evidence of infection. Doppler was negative for DVT. Chest x-ray is negative for CHF. BNP is elevated. EKG shows atrial fibrillation, no acute ischemic changes. Rate controlled. Discharge diagnoses and problem list: Peripheral swelling. Much improved with diuresis. The patient is feeling much better and is insisting to be discharged home. He refused considering staying another day to complete the work-up. He is adamant to go home. He feels safe to go home. He agreed to follow-up with the therapeutic recreation leader after discharge. We discussed changes to his medications. He verbalized understanding and agreement Atrial fibrillation. Rate controlled. Currently resolved. Currently in sinus. I am not starting on any anticoagulation due to increased risks of bleeding complications considering his age and possible Alzheimer's disease. We will continue beta-carol. Long-term management per therapeutic recreation leader. Coronary artery disease. Inferior Q waves. No chest pain or other cardiac complaints. Started aspirin. He will follow-up with therapeutic recreation leader. Referral is provided. Hypertension. Well-controlled. Will replace amlodipine with lisinopril. We will continue monitoring and adjusting medications. Follow-up BMP is ordered. History of BPH. We will continue home Flomax. Microcytosis. TSH, B12 and folic acid levels are within normal range. No significant anemia. Short-term memory loss. Long-term memory is intact. Probably Alzheimer's dementia. B12 and TSH were normal. Rest of the work-up can be done in outpatient settings. The patient refused consideration for detention facility placement or home health care. He states that he is used to live and function with this problem. He states that he will not have any problems finding his way home. I asked the nursing staff to help him to his car. He also did not want me to contact any family members. He is asked to come back to emergency room if he develops any similar or new problems. Discharge Data Data Completed and Pending: Completed Studies During Hospitalization Category Date Time Status XR chest 1V [place] ble [id number] Stat Exams 06/17/20 07:54 [place] [id number] Stat Ultrasound 06/17/20 07:58 Completed Pending at discharge Category Date Time Status Magnesium AM LABS Lab 06/19/20 04:00 Ordered Renal Function Pa vijaya AM LABS Lab 06/19/20 04:00 Ordered CV echo complete* [id number] Routine Ultrasound 06/17/20 11:03 Taken Labs from last 24 hours 06/18/20 06/18/20 06/17/20 03:08 03:08 08:02 WBC 4.2 RBC 3.82 L Hgb 12.5 Hct 38.2 L MCV 100.0 H MCH 32.7 MCHC 32.7 RDW 13.2 Plt Count 176 MPV 11.0 H Neut % (Auto) 66.6 Lymph % (Auto) 15.9 [place] % (Auto) 12.8 Eos % (Auto) 3.3 Baso % (Auto) 0.9 Neut # (Auto) 2.81 Lymph # (Auto) 0.7 L [place] # (Auto) 0.5 Eos # (Auto) 0.1 Baso # (Auto) 0.0 Nucleated RBC % (a uto) 0 Nucleated RBCs # 0.0 Sodium 143 Potassium 3.6 Chloride 105 Carbon Dioxide 29 Anion Gap 12.6 BUN 18 Creatinine 0.9 GFR Calculation Not Reportable Glucose 86 Calculated Osmolal ity 297 H Calcium 8.6 Magnesium 2.2 NT-Pro-B Natriuret Pep 520 H Triglycerides 87 Cholesterol 126 LDL Cholesterol, C alc 69 HDL Cholesterol 40 L LDL/HDL Ratio 1.73 Cholesterol/HDL Ra jose 3.15 Vitamin B12 396 Folate TSH 2.75 06/17/20 08:02 WBC RBC Hgb Hct MCV MCH MCHC RDW Plt Count MPV Neut % (Auto) Lymph % (Auto) [place] % (Auto) Eos % (Auto) Baso % (Auto) Neut # (Auto) Lymph # (Auto) [place] # (Auto) Eos # (Auto) Baso # (Auto) Nucleated RBC % (a uto) Nucleated RBCs # Sodium Potassium Chloride Carbon Dioxide Anion Gap BUN Creatinine GFR Calculation Glucose Calculated Osmolal ity Calcium Magnesium NT-Pro-B Natriuret Pep Triglycerides Cholesterol LDL Cholesterol, C alc HDL Cholesterol LDL/HDL Ratio Cholesterol/HDL Ra jose Vitamin B12 Folate 12.6 TSH Vitals: Last Vital Signs Temp 97.4 F L 06/18/20 07:14 Pulse 73 06/18/20 07:14 Resp 16 06/18/20 07:14 BP 118/73 06/18/20 07:14 Pulse Ox 93 06/18/20 07:14 Discharge Plan Discharge Patient Disposition: Home Condition: Stable Prescriptions: New aspirin 81 mg Tablet,Delayed Release (Dr/Ec) 81 mg PO DAILY Qty: 30 RF: 0 lisinopril 5 mg Tablet 5 mg PO DAILY Qty: 30 RF: 0 Lasix 20 mg tablet 20 mg PO BID Qty: 60 RF: 0 Aricept 5 mg tablet 5 mg PO DAILY Qty: 30 RF: 0 Continued metoprolol succinate 25 mg tablet extended release 24 hr 12.5 mg PO QAM RF: 0 rosuvastatin 20 mg tablet 20 mg PO QPM RF: 0 tamsulosin 0.4 mg capsule 0.4 mg PO QAM RF: 0 Discontinued amlodipine 5 mg tablet 5 mg PO QAM RF: 0 Discharge Orders: Discharge Order (Routine); Ordered 06/18/20 Ordered By: Leonel Cobb Other Ambulatory Orders: Basic Metabolic Panel (Routine) Timeframe: 1 Week Facility: [facility] - Location: Lab - Main Lab Ordered By: Leonel Cobb Referrals: Jamal Pulido M.D [Physician] - 7-10 days (re CAD, CHF, AFIb work up. Pl ask dr Pulido to review your Echo from this hospitalization) Discharge Diet: Usual diet Discharge Activity: Resume usual activity Patient Instructions: Lisinopril (By mouth), Furosemide (By mouth), Aspirin (By mouth), Donepezil (By mouth), Heart Failure (DC), Coronary Artery Disease (DC), Atrial Fibrillation (DC), Alzheimer Disease (DC) Activity Restrictions/Additional Instructions: Please follow-up with the heart doctor as instructed. Referral is provided. Please follow-up with your primary care physician in 2 weeks. Please ask your doctor to adjust your medications. Please return to emergency room if you develop any chest pain, palpitations, shortness of breath, increased swelling, dizziness or lightheadedness, diaphoresis, or any other new complaints. Discharge Attestations Time Spent in Discharge Care*: less than 30 min Quality Metrics Clinical Quality Measures During this hospital stay, did patient experience: None Coding Level of Care Code Acute Chg FW DC note
--- NOTE | 2020-06-18 10:00 | PC.NURSE ---
Discussion regarding PCP closer to home Pt stated that, i go [place] for 20 yrs and i have 3 doctors here. Explained to pt that we can get him a PCP closer to him and his previous pcp will send all his records. Pt denies any need to set up a new pcp. Informed Case mgt. Informed pt that he will see a critical care technician and he is aware of it per hospitalist discussion with him this morning.
[2020-06-18 10:12] VITALS: BP 118/73; PULSE 73; RESP 16; TEMP 36.3; O2SAT 93
--- NOTE | 2020-06-18 10:15 | PC.NURSE ---
Addendum entered by Bakari Portillo RN 06/18/20 12:00: Add note: Discharge instructions regarding follow-up with his pcp and HCS next week. Informed pt he will need a blood test next week and pt choose to go to [place] for this. Extensive education regarding new medication adherence. Discuss and provided written discharge new medications actions, dosing and timing. Discharge packet provided to pt. Original Note: Discharge to home Pt is alert, oriented x4. He insisted he wants to walk to his car. Received order from Dr. Cobb to help pt in his car. Walked pt to [facility]
--- NOTE | 2020-06-18 10:15 | PC.NURSE ---
pt stated he would like to get his prescriptions to [facility] in [place] finalaized the order and was sent to [facility]. New paper prescriptions provided to pt. called to [facility] as well.
== END 2020-06-18 11:58 | disposition home or self-care (01) | DRG 607 ==
LOC: ER 07:45 → CSU 09:54
PROVIDERS: Admitting Provider Internal Medicine; Emergency Provider Family Medicine; Visit Provider Internal Medicine
DX: R22.43 Localized swelling, mass and lump, lower limb, bilateral (principal); I48.91 Unspecified atrial fibrillation; R41.3 Other amnesia; R71.8 Other abnormality of red blood cells; I10 Essential (primary) hypertension; I25.10 Atherosclerotic heart disease of native coronary artery without angina pectoris; N40.0 Benign prostatic hyperplasia without lower urinary tract symptoms; E78.5 Hyperlipidemia, unspecified; I25.2 Old myocardial infarction; Z95.5 Presence of coronary angioplasty implant and graft; Z87.891 Personal history of nicotine dependence
CPT/HCPCS: 36415; 71045; 80048; 80053; 80061; 81003; 82550; 82607; 82746; 83735; 83880; 84443; 85025; 93005; 93306; 93970; 96372; 96374; 97110; 97116; 97161; 97165; 97530; 99285; J1650; J1940

== ENCOUNTER 2021-08-19 08:09 | Emergency (ER) | payer MEDICARE, SELFPAY ==
[2021-08-19 08:24] VITALS: BP 141/74; PULSE 71; RESP 14; TEMP 37.1; O2SAT 96; BMI 28.5
--- NOTE | 2021-08-19 08:34 | USR_ITS ---
PROCEDURE INFORMATION: Exam: US Duplex Left Lower Extremity Veins, Limited Exam date and time: 08/19/2021 8:56 AM Age: 86 years old Clinical indication: Edema, localized and swelling (edema) of limb; Lower extremity, left; Patient HX: Lt leg swelling. Leg is warm and red. TECHNIQUE: Imaging protocol: Real-time Duplex ultrasound of the Left Lower Extremity with 2-D garcia scale, color Doppler flow and spectral waveform analysis with image documentation. Limited exam focused on the left lower extremity veins. COMPARISON: CT abdomen pelvis w con* [id number] 04/25/2020 9:00 AM FINDINGS: There is thrombus noted within the left common femoral vein through anterior tibial vein. The this includes the peroneal trunk. No clot is seen within the greater saphenous vein. Clot is occlusive within the superficial femoral vein as well as the popliteal vein . Small amount of augmentation is seen within the posterior tibial vein in the small amount of flow within the common femoral vein. According to the technologist the clot appears mobile at the common femoral vein area could be at risk for detachment and movement to the lungs. US/CV venous duplex [facility] [id number] IMPRESSION: Extensive left lower extremity DVT.
--- NOTE | 2021-08-19 09:03 | PC.NURSE ---
Patient in bed, ultrasound at bedside.
--- NOTE | 2021-08-19 09:11 | ED_ITS ---
HPI - Extremity Problem General: Chief complaint: Extremity Injury, Lower Stated complaint: LLE swelling Time Seen by Provider: 08/19/21 08:32 Source: patient Mode of arrival: ambulatory Limitations: no limitations History of Present Illness: 86-year-old male states he has had left lower leg pain and swelling over the last few days. He states that its worse with palpation improved with rest states pain is currently 5 out of 10 he denies any fevers denies any warmth to touch denies any shortness of breath or chest pain. Associated symptoms: Deny chest pain, fever(s) or rash Review of Systems Const: Denies: fever(s), chills, body aches or change in appetite Eyes: Denies: blurry vision or eye discomfort ENMT: Denies: throat pain or dental pain Card: Denies: chest pain Resp: Denies: dyspnea GI: Denies: abdominal pain, nausea, vomiting or diarrhea : Denies: dysuria Musc: Reports: extremity pain and extremity swelling Skin/Breast: Denies: rash Neuro: Denies: headache(s) Psych: Denies: depression Riley/Lymph: Denies: easy bruising All/Imm: Denies: urticaria PFSH ED PFSH: Medical History Abdominal pain CAD (coronary artery disease) Frequency of micturition History of FL (myocardial infarction) times two Hx of mumps Prostate cancer screening Wears hearing aid in both ears Surgical History History of colonoscopy History of open heart surgery (~2006) Hx of heart artery stent Family History Mother Diabetes Denies family history of Clotting disorder Chronic kidney disease (CKD) Lung disease Cancer Hypertension Stroke Social History Smoking and tobacco status: former smoker Quit status (tobacco): has quit using tobacco Second hand smoke exposure: No Smoking risk assessment/counseling performed?: No Alcohol intake: never Desire information about alcohol rehabilitation?: No Counseling given: No Desire information about substance/drug rehabilitation?: No Counseling given: No Adopted: No Caregiver/support person: No Lives independently: Yes Household members: none Housing: Manufactured/Mobile home Marital status: Number of children: 3 Number of grandchildren: 7 Highest education level completed: High School Graduate service: No Current occupational status: retired Pets and animals: No History of recent travel: No Current gender identity: Male Physical Exam Const: COMMON NORMALS: no acute distress, patient oriented x3 and healthy appearing HENMT: COMMON NORMALS: normocephalic and atraumatic HEAD & SCALP: no rmocephalic and atraumatic Eye: COMMON NORMALS: Equal, round and reactive pupils present and EOMs intact bilaterally PUPIL: Yes Equal, round and reactive pupils present Neck/C-Spine: COMMON NORMALS: full ROM and supple Chest: COMMONS NORMALS: normal inspection of the chest and normal palpation of entire chest wall Resp: COMMON NORMALS: normal respiratory effort, No retractions, No use of accessory muscles and clear to auscultation bilaterally AUSCULTATION: clear to auscultation bilaterally Cardio: COMMON NORMALS: regular rate, regular rhythm and No murmurs present (Cardio) RATE: regular rate RHYTHM: regular rhythm GI: COMMON NORMALS: Normal to inspection, nondistended, normoactive bowel sounds present, Soft to palpation, non-tender and no masses PALPATION: Yes Soft to palpation Extremity: COMMON NORMALS: full ROM NARRATIVE EXTREMITY EXAM: Swelling to left lower leg with some calf tenderness Neuro: COMMON NORMALS: patient oriented x3, moves all extremities and no focal motor deficits Psych: COMMON NORMALS: mental status grossly normal, Normal thought process present and cooperative THOUGHT PROCESS: Normal thought process present Skin: COMMON NORMALS: no rashes or lesions noted and no wounds GENERAL SKIN EXAM: no rashes or lesions noted Course Vital Signs: Vital signs: Vital Signs Temperature 98.8 F 08/19/21 08:24 Pulse Rate 71 08/19/21 08:24 Respiratory Rate 14 08/19/21 08:24 Blood Pressure 141/74 08/19/21 08:24 Pulse Oximetry 96 08/19/21 08:24 MDM - Extremity (Nontraumatic) Medical Decision Making Patient presents here with DVT in the left lower extremity we will start him on Eliquis he has no signs of pulmonary embolism he is to follow-up with PCP in 3 to 5 days return if he has any shortness of breath or worsening symptoms he understands agrees to plan. Discharge Plan Discharge Patient Disposition: Home Clinical Impression: DVT (deep venous thrombosis) Qualifiers: DVT location: lower extremity Affected thrombotic vein of extremity: unspecified vein of extremity Chronicity: acute Laterality: left Qualified Code(s): I82.402 - Acute embolism and thrombosis of unspecified deep veins of left lower extremity Condition: Stable Prescriptions: New Eliquis 5 mg tablet 10 mg PO BID 7 Days Qty: 28 0RF Eliquis 5 mg tablet 5 mg PO BID Qty: 60 0RF Rx Instructions: start after loading dose of 10mg bid x 1 week No Action metoprolol succinate 25 mg tablet extended release 24 hr 12.5 mg PO QAM 0RF rosuvastatin 20 mg tablet 20 mg PO QPM 0RF tamsulosin 0.4 mg capsule 0.4 mg PO QAM 0RF aspirin 81 mg Tablet,Delayed Release (Dr/Ec) 81 mg PO DAILY Qty: 30 0RF lisinopril 5 mg Tablet 5 mg PO DAILY Qty: 30 0RF Lasix 20 mg tablet 20 mg PO BID Qty: 60 0RF Aricept 5 mg tablet 5 mg PO DAILY Qty: 30 0RF Discharge Orders: Discharge ED (Routine); Ordered 08/19/21 Ordered By: Cintia Bales Discharge Diet: Advance as tolerated Discharge Activity: Resume usual activity Patient Instructions: Deep Vein Thrombosis (ED) Coding Level of Care Code ED Account Manager for Melania Beth Exam Comprehensive
[2021-08-19 09:32] VITALS: BP 160/107; PULSE 73; RESP 18; O2SAT 97
== END 2021-08-19 09:36 | disposition home or self-care (01) ==
PROVIDERS: Emergency Provider Emergency Medicine
DX: I82.402 Acute embolism and thrombosis of unspecified deep veins of left lower extremity (principal); Z79.82 Long term (current) use of aspirin
CPT/HCPCS: 93971; 99283